=== PATIENT | male | born 1990 | race Caucasian/White ===

== ENCOUNTER 2020-12-07 16:31 | Emergency (ER) | payer SELFPAY ==
--- NOTE | 2020-12-07 17:23 | RAD REPORT ---
EXAM DESCRIPTION: CT - Stone Protocol - 12/07/2020 5:01 pm CLINICAL HISTORY: Flank pain. FLANK PAIN COMPARISON: No comparisons TECHNIQUE: Axial images were obtained without oral or IV contrast. Lack of contrast limits solid org an and vascular assessment. The [id number] spans the entirety of the system partially obscuring uppermost abdomen and lung bases. Coronal reformatted images were obtained and reviewed. All CT scans are performed using dose optimization technique as appropriate and may include automated exposure control or mA/KV adjustment according to patient size. FINDINGS: The lower lung jackson are clear. Imaged portions of the liver and spleen show no suspicious findings on non-contrast imaging. The panc reas and adrenal glands are normal. No pathologic lymphadenopathy in the abdomen or pelvis. No urinary tract stones or obstructive uropathy. No bowel obstruction, free air, free fluid or abscess. Normal appendix noted. Bilateral spondylolysis is identified at L5-S1 with mild anterolisthesis. IMPRESSION: No urinary tract stones or obstructive uropathy. 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
[2020-12-07 17:44] LABS: Urine Blood NEGATIVE (NEG); Urine Glucose NEGATIVE (NEG); Urine Protein NEGATIVE (NEG); Urine Specific Gravity 1.015 (1.005-1.030); Urine pH 6.5 (5.0-7.0)
[2020-12-07 18:01] LABS: Absolute Lymphocytes (CBC) 3.2 K/uL (0.7-4.9); Basophils % 0.7 % (0-1.3); Hematocrit 41.7 % (39.6-49.0); Lymphocytes % 32.4 % (15.3-44.8); MPV 9.5 fL (7.6-11.3); RBC Red Blood Cell Count 4.74 M/uL (4.33-5.43)
[2020-12-07] MEDS ORDERED: KETOROLAC 30 MG/ML INJ ONE (18:20)
[2020-12-07 18:29] LABS: Albumin 4.3 g/dL (3.4-5.0); Bilirubin Direct 0.1 mg/dL (0-0.2); Bilirubin Total 0.5 mg/dL (0.2-1.0); Potassium 3.5 mmol/L (3.5-5.1); Protein, Total 7.8 g/dL (6.4-8.2)
--- NOTE | 2020-12-07 19:39 | RAD REPORT ---
EXAM DESCRIPTION: US - Scrotum Testicles - 12/07/2020 7:07 pm CLINICAL HISTORY: PAIN COMPARISON: No comparisons FINDINGS: The right testicle 4.6 x 3.0 x 2.1 cm. No intratesticular masses or evidence of testicular torsion. The left testicle 4.2 x 2.8 x 2.0 cm. No intratesticular masses or evidence of testicular torsion. Both epididymides are normal in size and appearance. No pathologic fluid collections. IMPRESSION: Unremarkable study.
--- NOTE | 2020-12-07 19:47 | EDPHYS ---
Physician Documentation [facility] Name: Gareth Martínez II Age: 30 yrs Sex: Male : 1990 Arrival Date: 12/07/2020 Time: 16:32 Bed 8 Private MD: ED Physician Sean Beasley HPI: 12/07 18:53 This 30 yrs old Male presents to ER via Ambulatory with complaints of Rt Side kb Pain, Kidney Problem. 18:53 The patient presents with abdominal pain in the right upper quadrant, right lower kb quadrant. Onset: The symptoms/episode began/occurred 1 week(s) ago. The symptoms radiate to right flank and right testicle. Associated signs and symptoms: Pertinent positives: testicular pain. The symptoms are described as constant. Modifying factors: The symptoms are alleviated by nothing, the symptoms are aggravated by nothing. Severity of pain: At its worst the pain was moderate in the emergency department the pain is unchanged. The patient has experienced similar episodes in the past, a few times. The patient has not recently seen a physician. Historical: - Allergies: 16:42 Reglan; ca1 - Home Meds: 16:43 Protonix Oral [Active]; ca1 - PMHx: 16:42 None; ca1 - PSHx: 16:42 None; ca1 - Immunization history:: Adult Immunizations not up to date. - Social history:: Smoking status: Patient denies any tobacco usage or history of. ROS: 18:44 Constitutional: Negative for fever, chills, and weight loss, Cardiovascular: Negative kb for chest pain, palpitations, and edema, Respiratory: Negative for shortness of breath, cough, wheezing, and pleuritic chest pain, MS/Extremity: Negative for injury and deformity, Skin: Negative for injury, rash, and discoloration, Neuro: Negative for headache, weakness, numbness, tingling, and seizure. 18:44 Abdomen/GI: Positive for abdominal pain. 18:44 Back: Positive for flank pain, on the right. 18:44 : Positive for testicular pain Exam: 18:44 Constitutional: This is a well developed, well nourished patient who is awake, alert, kb and in no acute distress. Head/Face: Normocephalic, atraumatic. Cardiovascular: Regular rate and rhythm with a normal S1 and S2. No gallops, murmurs, or rubs. Normal PMI, no JVD. No pulse deficits. Respiratory: Lungs have equal breath sounds bilaterally, clear to auscultation and percussion. No rales, rhonchi or wheezes noted. No increased work of breathing, no retractions or nasal flaring. Skin: Warm, dry with normal turgor. Normal color with no rashes, no lesions, and no evidence of cellulitis. MS/ Extremity: Pulses equal, no cyanosis. Neurovascular intact. Full, normal range of motion. Neuro: Awake and alert, GCS 15, oriented to person, place, time, and situation. Cranial nerves II-XII grossly intact. Motor strength 5/5 in all extremities. Sensory grossly intact. Cerebellar exam normal. Normal gait. 18:44 Abdomen/GI: Inspection: abdomen appears normal, Bowel sounds: normal, in all quadrants, Palpation: soft, in all quadrants, mild abdominal tenderness, in the right upper quadrant and right lower quadrant. 18:46 Back: CVA tenderness, that is mild, is noted on the right. kb Vital Signs: 16:38 BP 127 / 83; Pulse 86; Resp 16 S; Temp 97.4(TE); Pulse Ox 99% on R/A; Weight 68.95 kg ca1 (R); Height 5 ft. 6 in. (167.64 cm) (R); Pain 4/10; 17:48 BP 94 / 56; Pulse 50; Resp 16 S; Pulse Ox 100% on R/A; iw 17:53 BP 108 / 66; Pulse 66; Resp 16; Pulse Ox 100% on R/A; iw 18:00 BP 111 / 68; Pulse 57; Resp 16; Pulse Ox 98% on R/A; iw 19:30 BP 113 / 73; Pulse 55; Resp 18; Pulse Ox 98% ; ea 16:38 Body Mass Index 24.53 (68.95 kg, 167.64 cm) ca1 MDM: 17:02 Patient medically screened. kb 18:44 Data reviewed: vital signs, nurses notes. Data interpreted: Pulse oximetry: on room air kb is 98 %. Interpretation: normal. 19:46 Counseling: I had a detailed discussion with the patient and/or guardian regarding: the kb historical points, exam findings, and any diagnostic results supporting the discharge/admit diagnosis, lab results, radiology results, the need for outpatient follow up, a family practitioner, a crossbar frame wirer, to return to the emergency department if symptoms worsen or persist or if there are any questions or concerns that arise at home. 12/07 17:11 Order name: Basic Metabolic Panel; Complete Time: 18:31 kb 12/07 17:11 Order name: CBC with Diff; Complete Time: 18:11 kb 12/07 17:11 Order name: Hepatic Function; Complete Time: 18:31 kb 12/07 17:11 Order name: Lipase; Complete Time: 18:31 kb 12/07 17:20 Order name: Urine Dipstick--Ancillary (enter results) sp 12/07 17:21 Order name: Urine Dipstick-Ancillary; Complete Time: 17:48 EDMS 12/07 16:44 Order name: Urine Dipstick-Ancillary (obtain specimen); Complete Time: 17:16 kb 12/07 16:44 Order name: CT Stone Protocol; Complete Time: 17:25 kb 12/07 17:11 Order name: US Scrotum Testicles; Complete Time: 19:40 kb 12/07 17:11 Order name: IV Saline Lock; Complete Time: 17:58 kb 12/07 17:11 Order name: Labs collected and sent; Complete Time: 17:58 kb 12/07 18:01 Order name: Glucose, Ancillary Testing EDMS Administered Medications: 18:05 Drug: TORadol - Ketorolac 15 mg Route: IVP; Site: right antecubital; 19:00 Follow up: Response: No adverse reaction ea Disposition: 12/07/20 19:47 Discharged to Home. Impression: Generalized abdominal pain. - Condition is Stable. - Discharge Instructions: Abdominal Pain, Adult, [id number]. - Medication Reconciliation Form, Thank You Letter, Antibiotic Education, Prescription Opioid Use form. - Follow up: Emergency Department; When: As needed; Reason: Worsening of condition. Follow up: Private Physician; When: 2 - 3 days; Reason: Recheck today's complaints, Continuance of care, Re-evaluation by your physician. Addendum: 12/12/2020 15:55 Co-signature as Attending Physician, Sean Beasley MD. r n Signatures: Dispatcher [employer] EDWV Seema Chavez, AUNG-C AUNG-Ckb Rosalva Feldman RN Sean Hays MD MD rn Antunez, Elena, RN RN ea Acob, Karine, RN SPIKE ca1 Corrections: (The following items were deleted from the chart) 12/07 18:46 18:44 Constitutional: This is a well developed, well nourished patient who is awake, kb alert, and in no acute distress. Head/Face: Normocephalic, atraumatic. Cardiovascular: Regular rate and rhythm with a normal S1 and S2. No gallops, murmurs, or rubs. Normal PMI, no JVD. No pulse deficits. Respiratory: Lungs have equal breath sounds bilaterally, clear to auscultation and percussion. No rales, rhonchi or wheezes noted. No increased work of breathing, no retractions or nasal flaring. Skin: Warm, dry with normal turgor. Normal color with no rashes, no lesions, and no evidence of cellulitis. MS/ Extremity: Pulses equal, no cyanosis. Neurovascular intact. Full, normal range of motion. Neuro: Awake and alert, GCS 15, oriented to person, place, time, and situation. Cranial nerves II-XII grossly intact. Motor strength 5/5 in all extremities. Sensory grossly intact. Cerebellar exam normal. Normal gait. kb 20:03 19:47 12/07/2020 19:47 Discharged to Home. Impression: Generalized abdominal pain. ea Condition is Stable. Forms are Medication Reconciliation Form, Thank You Letter, Antibiotic Education, Prescription Opioid Use. Follow up: Emergency Department; When: As needed; Reason: Worsening of condition. Follow up: Private Physician; When: 2 - 3 days; Reason: Recheck today's complaints, Continuance of care, Re-evaluation by your physician. kb
--- NOTE | 2020-12-07 19:47 | ER ---
Nurse's Notes [facility] Name: Graeth Martínez II Age: 30 yrs Sex: Male : 1990 Arrival Date: 12/07/2020 Time: 16:32 Bed 8 Private MD: Diagnosis: Generalized abdominal pain Presentation: 12/07 16:38 Chief complaint: Patient states: RLQ pain, R flank pain x 1 week, today is worse. ca1 Reports R testicular pain. Denies urinary symptoms. Coronavirus screen: Client denies travel out of the [place] in the last 14 days. At this time, the client does not indicate any symptoms associated with coronavirus-19. Ebola Screen: Patient negative for fever greater than or equal to 101.5 degrees Fahrenheit, and additional compatible Ebola Virus Disease symptoms Patient denies exposure to infectious person. Patient denies travel to an Ebola-affected area in the 21 days before illness onset. No symptoms or risks identified at this time. Initial Sepsis Screen: Does the patient meet any 2 criteria? No. Patient's initial sepsis screen is negative. Does the patient have a suspected source of infection? No. Patient's initial sepsis screen is negative. Risk Assessment: Do you want to hurt yourself or someone else? Patient reports no desire to harm self or others. Onset of symptoms was December 07, 2020. 16:38 Method Of Arrival: Ambulatory ca1 16:38 Acuity: CRUZ 3 ca1 Triage Assessment: 18:00 General: Behavior is calm. iw Historical: - Allergies: 16:42 Reglan; ca1 - Home Meds: 16:43 Protonix Oral [Active]; ca1 - PMHx: 16:42 None; ca1 - PSHx: 16:42 None; ca1 - Immunization history:: Adult Immunizations not up to date. - Social history:: Smoking status: Patient denies any tobacco usage or history of. Screenin:57 Abuse screen: Denies threats or abuse. Denies injuries from another. Nutritional iw screening: No deficits noted. Tuberculosis screening: No symptoms or risk factors identified. Fall Risk IV access (20 points). Assessment: 17:48 Reassessment: pt appears to have had vasovagal reaction to IV attempt, pt drowsy, iw awakens to tactile stimuli, BP 94/58, HR 50 , pt states that has never happened to him before. 18:42 Reassessment: Patient appears in no apparent distress at this time. Patient and/or iw family updated on plan of care and expected duration. Pain level reassessed. Patient is alert, oriented x 3, equal unlabored respirations, skin warm/dry/pink. Patient states feeling better. 18:42 General: Appears in no apparent distress. iw 19:06 Reassessment: ultrasound at bedside. ea 20:02 Reassessment: Patient and/or family updated on plan of care and expected duration. Pain ea level reassessed. Patient is alert, oriented x 3, equal unlabored respirations, skin warm/dry/pink. Discharge instruction given to patient verbalized the understanding of instruction. Pt left ED ambulatory tolerating well. Vital Signs: 16:38 BP 127 / 83; Pulse 86; Resp 16 S; Temp 97.4(TE); Pulse Ox 99% on R/A; Weight 68.95 kg ca1 (R); Height 5 ft. 6 in. (167.64 cm) (R); Pain 4/10; 17:48 BP 94 / 56; Pulse 50; Resp 16 S; Pulse Ox 100% on R/A; iw 17:53 BP 108 / 66; Pulse 66; Resp 16; Pulse Ox 100% on R/A; iw 18:00 BP 111 / 68; Pulse 57; Resp 16; Pulse Ox 98% on R/A; iw 19:30 BP 113 / 73; Pulse 55; Resp 18; Pulse Ox 98% ; ea 16:38 Body Mass Index 24.53 (68.95 kg, 167.64 cm) ca1 ED Course: 16:32 Patient arrived in ED. ag5 16:41 Triage completed. ca1 16:43 Seema Chavez FNP-Joao is PHCP. kb 16:43 Sean Beasley MD is Attending Physician. kb 16:43 Arm band placed on right wrist. ca1 17:00 Patient has correct armband on for positive identification. iw 17:01 CT Stone Protocol In Process Unspecified. EDMS 17:07 Rosalva Feldman, RN is Primary Nurse. iw 17:50 Inserted saline lock: 20 gauge in right antecubital area, using aseptic technique. iw 17:54 Missed attempt(s): 20 gauge in right antecubital area. em1 19:07 US Scrotum Testicles In Process Unspecified. EDMS 20:02 No provider procedures requiring assistance completed. IV discontinued, intact, ea bleeding controlled, No redness/swelling at site. Pressure dressing applied. Administered Medications: 18:05 Drug: TORadol - Ketorolac 15 mg Route: IVP; Site: right antecubital; iw 19:00 Follow up: Response: No adverse reaction ea Outcome: 19:47 Discharge ordered by . renee 20:02 Discharged to home ambulatory. ea 20:02 Condition: stable 20:02 Discharge instructions given to patient, Instructed on discharge instructions, follow up and referral plans. Demonstrated understanding of instructions, follow-up care. 20:03 Patient left the ED. ea Signatures: Dispatcher [employer] EDMS Seema Chavez, COUNTRY PRINTER APPRENTICE-C COUNTRY PRINTER APPRENTICE-Rosalva Tavares, RN RN Andres Oviedo em1 Maria Ines Watkins RN Karine Rhodes ea RN SPIKE Robledo, Faye ag5
[2020-12-07 21:36] VITALS: TEMP 97.4
[2020-12-07 21:41] VITALS: BP 111/68; O2SAT 98
== END 2020-12-07 20:03 | disposition home or self-care (01) ==
LOC: ER 16:31
DX: R10.84 Generalized abdominal pain (principal)
CPT/HCPCS: 36415; 74176; 76377; 76870; 80048; 80076; 81003; 82947; 83690; 85025; 96374; 99284